=== PATIENT | male | born 1975 | race Caucasian/White ===

== ENCOUNTER 2021-09-18 16:12 | Inpatient (IN) | payer OTHER ==
[2021-09-18 20:40] VITALS: BMI 25.7
[2021-09-18] MEDS ORDERED: MAGNESIUM CITRATE 300 ML BOTTLE PO PRN (21:54)
[2021-09-18] MEDS ORDERED: LOPERAMIDE HCL 2 MG CAPSULE PO PRN (21:54)
[2021-09-18] MEDS ORDERED: MAGNESIUM HYDROX 2400MG/30ML ORAL SUSPENSION 30 ML CUP PO PRN (21:54)
[2021-09-18] MEDS ORDERED: NICOTINE 10 MG CARTRIDGE (INHALER) IH PRN (21:54)
[2021-09-18] MEDS ORDERED: ONDANSETRON *ODT* 4 MG TABLET SL PRN (21:54)
[2021-09-18] MEDS ORDERED: BISMUTH SUBSALICYLATE 524 MG/30 ML PO PRN (21:54)
[2021-09-18] MEDS ORDERED: ACETAMINOPHEN 325 MG TABLET (FP) PO PRN ×2 (21:54)
[2021-09-18] MEDS ORDERED: MENTHOL/PHENOL 1 EACH UD MM PRN (21:54)
[2021-09-18] MEDS ORDERED: MAG HYDROX/AL HYDROX/SIMETH 30 ML UNIT-DOSE CUP PO PRN (21:54)
[2021-09-18] MEDS: MELATONIN 5 MG TABLETS PO SCH (23:56)
[2021-09-18] MEDS: THIAMINE HCL 100 MG TABLET (FP) PO SCH (23:57)
[2021-09-18] MEDS: METHOCARBAMOL 500 MG TABLET PO PRN (23:57)
[2021-09-19] MEDS ORDERED: methaDONE HCL 10 MG TABLET (FOR DETOX USE ONLY) PO ONE (00:02)
[2021-09-19] MEDS ORDERED: cloNIDine HCL 0.1 MG TABLET PO PRN (00:02)
[2021-09-19] MEDS: hydrOXYzine PAMOATE 25 MG CAPSULE (FP) PO PRN (06:32)
[2021-09-19] MEDS: IBUPROFEN 400 MG TABLET (FP) PO PRN (07:32)
[2021-09-19] MEDS: PRENATAL VITAMINS W/ FOLIC ACID TABLET (FP) PO SCH (10:42)
[2021-09-19] MEDS: NICOTINE 14 MG/24 HOURS TOPICAL PATCH TD SCH (10:42)
[2021-09-19] MEDS: diazePAM 5 MG TABLET PO PRN ×2 (17:28→22:09)
[2021-09-19] MEDS: traZODone HCL 100 MG TABLET (FP) PO SCH (22:07)
[2021-09-19] MEDS: THIAMINE HCL 100 MG TABLET (FP) PO SCH (22:07)
[2021-09-19] MEDS: MELATONIN 5 MG TABLETS PO SCH (22:08)
[2021-09-19] MEDS: METHOCARBAMOL 500 MG TABLET PO PRN (22:09)
[2021-09-20] MEDS: diazePAM 5 MG TABLET PO PRN ×5 (02:49→19:32)
[2021-09-20] MEDS ORDERED: methaDONE HCL 10 MG TABLET (FOR DETOX USE ONLY) ONE (09:49)
[2021-09-20] MEDS: METHOCARBAMOL 500 MG TABLET PO PRN ×2 (11:02→17:23)
[2021-09-20] MEDS: hydrOXYzine PAMOATE 25 MG CAPSULE (FP) PO PRN (11:03)
[2021-09-20] MEDS: PRENATAL VITAMINS W/ FOLIC ACID TABLET (FP) PO SCH (11:04)
[2021-09-20] MEDS: NICOTINE 14 MG/24 HOURS TOPICAL PATCH TD SCH (11:07)
[2021-09-20 11:55] LABS: HEMATOCRIT 38.5 % (35.4-49); MCH 29.1 pg (25.7-33.7); MCHC 33.7 g/dl (32.0-35.9); MEAN CELL VOLUME 86.3 fl (80-96); MEAN PLT VOLUME 7.4 fl (7.5-11.1); PLATELET COUNT 383 10^3/uL (134-434); RBC 4.46 M/mm3 (4.00-5.60); RDW 14.1 % (11.9-15.9); WHITE BLOOD COUNT 9.6 K/mm3 (4.0-10.0)
[2021-09-20 12:07] LABS: ALBUMIN 3.1 g/dl (3.4-5.0); CALCIUM 9.1 mg/dL (8.5-10.1)
[2021-09-20 12:10] LABS: BLOOD UREA NITROGEN 23.8 mg/dL (7-18)
[2021-09-20 12:11] LABS: CREATININE 0.9 mg/dL (0.55-1.3)
[2021-09-20 12:12] LABS: BILIRUBIN,TOTAL 0.2 mg/dL (0.2-1); TOT PROT 6.4 g/dl (6.4-8.2)
[2021-09-20] MEDS: IBUPROFEN 400 MG TABLET (FP) PO PRN (17:25)
[2021-09-20 21:38] VITALS: BP 130/82; PULSE 87; TEMP 97.5
[2021-09-20] MEDS: THIAMINE HCL 100 MG TABLET (FP) PO SCH (22:24)
[2021-09-20] MEDS: MELATONIN 5 MG TABLETS PO SCH (22:24)
[2021-09-20] MEDS: traZODone HCL 100 MG TABLET (FP) PO SCH (22:24)
[2021-09-21] MEDS: diazePAM 5 MG TABLET PO PRN (01:04)
[2021-09-21] MEDS ORDERED: methaDONE HCL 10 MG TABLET (FOR DETOX USE ONLY) PO ONE (10:00)
[2021-09-21 10:07] LABS: SARS-CoV-2 NAA Not Detected (Not Detected)
[2021-09-23] MEDS ORDERED: methaDONE HCL 10 MG TABLET (FOR DETOX USE ONLY) PO ONE (10:00)
== END 2021-09-21 01:45 | DRG 773 ==
LOC: YASAS 16:12 → Y3N 23:06
PROVIDERS: ADMIT Allergy & Immunology; ATTEND Allergy & Immunology
PROC: HZ2ZZZZ Detoxification Services for Substance Abuse Treatment (ICD-10-PCS; principal; 2021-09-18)
DX: F11.23 Opioid dependence with withdrawal (principal); F14.20 Cocaine dependence, uncomplicated; F12.20 Cannabis dependence, uncomplicated; F17.210 Nicotine dependence, cigarettes, uncomplicated; F19.282 Other psychoactive substance dependence with psychoactive substance-induced sleep disorder; F19.24 Other psychoactive substance dependence with psychoactive substance-induced mood disorder; F41.9 Anxiety disorder, unspecified; E11.9 Type 2 diabetes mellitus without complications; Z62.810 Personal history of physical and sexual abuse in childhood
CPT/HCPCS: 36415; 80053; 82962; 85027; 86780; 93005; 93010; C9803; J0735; U0003; U0005